=== PATIENT | female | born 2000 | race Caucasian/White ===

== ENCOUNTER 2023-01-14 10:44 | Emergency (ER) | payer OTHER ==
[~2023-01-14] VITALS: Ht 162.6 cm; Wt 59.1 kg
[2023-01-14 11:00] VITALS: BP 137/74
[2023-01-14] MEDS ORDERED: cephalexin 500mg capsule PO ONE (12:45)
[2023-01-14] MEDS ORDERED: CEPH-268 PO (12:57)
== END 2023-01-14 12:46 | disposition home or self-care (01) ==
LOC: ER 10:45
DX: L03.112 Cellulitis of left axilla (principal)
CPT/HCPCS: 99283